=== PATIENT | female | born 1990 | race Caucasian/White ===

== ENCOUNTER 2018-06-30 07:53 | Emergency (ER) | payer BC, SELFPAY ==
[2018-06-30 07:55] VITALS: BP 131/93; PULSE 69; RESP 14; TEMP 36.5; O2SAT 100; BMI 34.3
--- NOTE | 2018-06-30 08:07 | CT_ITS ---
STUDY: CT ABDOMEN AND PELVIS WITHOUT CONTRAST REASON FOR EXAM: Female, 27 years old. Right flank pain. RADIATION DOSAGE (If Supplied By Facility): CTDIvol = ( 12.02 ) mGy, DLP = ( 603.62 ) mGycm TECHNIQUE: Transaxial images were obtained from the dome of the diaphragm to the symphysis pubis without oral contrast, and without intravenous contrast. Sagittal and coronal images were reconstructed. Individualized dose optimization techniques were used for this CT. COMPARISON: None. FINDINGS: The visualized lung bases are unremarkable. The visualized portions of the heart are within normal limits. Normal liver. Normal gallbladder and extrahepatic biliary system. Normal spleen. Normal pancreas. Normal bilateral adrenal glands. Mild degree of right hydronephrosis and the right hydroureter due to a 5 mm x 3 mm calculus at the right ureterovesical junction. There is a 3.8 mm calculus in the lower pole of the left kidney. There is also a 3.2 mm calculus in the upper pole of the left kidney. There is a small hiatal hernia. Normal small intestine. Normal colon. The appendix is visualized and appears normal. Normal abdominal aorta. Normal inferior vena cava. There is borderline retroperitoneal lymphadenopathy with enlarged nodes no greater than 10mm in the short axis diameter. Normal urinary bladder. There is a small umbilical hernia containing fat. Small bilateral benign-appearing inguinal lymph nodes. Normal osseous structures. Minimal levoscoliosis. CT/Abdomen/Pelvis without Cont IMPRESSION: 5 mm x 3 mm calculus at the right ureterovesical junction causing right hydronephrosis and hydroureter. Nonobstructive left intrarenal calculi. Electronically Signed: Herbert Musa MD at 9:37 EST Tel [phone], Service support ,
[2018-06-30] MEDS: Morphine 4 MG/ML Syringe IV (08:27)
[2018-06-30] MEDS: 0.9% Normal Saline 1,000 ML 150 ML IV (08:27)
[2018-06-30] MEDS: Ondansetron 4 MG/2 ML Vial IV (08:27)
[2018-06-30] MEDS: Ketorolac 15 MG/ML Vial IV (08:27)
[2018-06-30 08:45] LABS: Mucous, Urine 0 SEEN /hpf (<or=2+)
[2018-06-30 08:47] LABS: Absolute Lymphocyte Count 1.14 X10^3/ul (0.83-4.51); Absolute Neutrophil Count 5.1 X10^3/uL (2.0-7.7); Basophil# 0.04 X10^3/uL; Basophil% 0.6 % (0-1); Eosinophil# 0.27 X10^3/uL; Eosinophils% 3.7 % (0-5); Hematocrit 40.9 % (37-47); Hemoglobin 13.1 g/dl (12.0-15.0); Lymphocyte # 1.14 X10^3/ul (4.0); Lymphocyte % 15.7 % (19-41); Mean Corpuscular Hgb 30.1 pg (27.0-32.0); Mean Platelet Vol. 10.4 fl (6.2-12.0); Monocyte# 0.72 X10^3/uL; Monocyte% 9.9 % (0-10); Neutrophil # 5.07 X10^3/uL (2.7-7.7); Platelet Count 288 K/mm3 (150-450); RBC Distribution Width CV 13.3 % (11.6-14.6); RBC Distribution Width SD 44.1 fl (35.1-43.9); Red Blood Count 4.35 M/mm3 (4.2-5.4); White Blood Count 7.3 K/mm3 (4.4-11.0)
[2018-06-30 08:48] LABS: POSITIVE COUNT NO; POSITIVE DIFFERENTIAL NO; POSITIVE MORPHOLOGY NO
[2018-06-30 08:49] LABS: Color, Urine Yellow (Yellow); Glucose, Dipstick Normal (Normal); Ketone-Dipstick Negative (Negative); Leukocyte Esterase-Dipstick 100 /ul (Negative); Nitrite-Dipstick Negative (Negative); Occult Blood-Urine 50 /ul (Negative); Protein-Dipstick Negative (Negative); Specific Gravity, Urine 1.005 (1.002-1.030); Urine Bilirubin Dipstick Negative (Negative); Urine Clarity Sl. Cloudy (Clear); Urine Urobilinogen Normal (Normal); Urine pH 6.5 (5.0 - 8.0)
[2018-06-30 09:00] LABS: Anion Gap 8 (5-15); BUN 10 mg/dL (7-18); BUN/Creat Ratio 12.4 RATIO (10-20); Bacteria 1+ /hpf (None Seen); Calcium,Total 8.6 mg/dL (8.5-10.1); Chloride 110 mmol/L (98-107); Creatinine, Serum 0.81 mg/dL (0.55-1.02); EST Glomerular Filtration Rate 89 mL/min (>60); Est Glom Filt Rate - Afr Amer 107 mL/min (>60); Estimated Creatinine Clearance 92.21 ml/min; Glucose 88 mg/dL (74-106); Potassium 4.2 mmol/L (3.5-5.1); Red Blood Cells-Urine 0-5 SEEN /hpf (0-5); Sodium Level 140 mmol/L (136-145); Squamous Epithelial Cells - UA 0-5 SEEN /hpf (5-10); White Blood Cells 10-25 SEEN /hpf (0-5)
[2018-06-30] MEDS: Ceftriaxone 1 GM/50 ML BAG IV (09:35)
[2018-06-30 09:50] LABS: Pregnancy, Serum, hCG Quali. NEGATIVE Negative (0-9 Nonpreg)
--- NOTE | 2018-06-30 09:50 | ED.VISSUMM ---
- ER Visit Summary Date of Service: 06/30/18 Chief Complaint: [Right-sided flank pain] History of Present Illness: The patient is a 27 F [presents to the emergency department complaint of pain in her right flank that started 2-1/2 days ago. Patient was seen at urgent care and had a urinalysis performed which was concerning for infection and there was blood in it so they thought she could potentially have a kidney stone as well. Patient was started on Macrobid. Patient did have some dysuria initially but that seems to have improved with the antibiotic. Patient continues to have pain in her right lower back. She denies any fevers. She has had some nausea but no vomiting. Patient's not had any history of kidney stones. Patient is on Depo-Provera and does not believe she is . Patient currently rates her pain an 8 out of 10.] Physical Examination: [HEENT-PERRLA, EOMI. Cranial nerves II through XII grossly intact. TMs clear. Mucous membranes moist. No adenopathy. Cardiovascular-regular rate and rhythm without murmur or ectopy Lungs-clear to auscultation, chest wall stable without crepitus or subcu emphysema Abdomen-normoactive bowel sounds, soft, nontender, no rebound or rigidity, no peritoneal signs. Patient does have CVA tenderness on the right. Extremities-intact ?4, normal range of motion, normal pulses, atraumatic] Test Results: [CBC with differential obtained was normal. Chemistries unremarkable. Urinalysis was positive for 100 leukocyte esterase, 10-25 WBCs, and +[address] flank obtained showed a 5 x 3 mm stone at the right UVJ with hydroureter and hydronephrosis.] Emergency Department Course and Treatment: [Patient was medicated with Toradol, morphine, and Zofran and she had good pain relief with that. Patient is very comfortable at this time. I did discuss case with who is on-call for urology who asked the patient follow-up with his office.] Treatment Plan: [Patient will be given urine strainers as well as a prescription for [place] for pain. Patient advised to follow-up with urology. Patient to return if worsening pain, fever, vomiting, or condition should worsen anyway.] Disposition: [Discharged home in stable condition] Impression: [Urolithiasis UTI] This note was generated with Jim dictation software. It may contain incorrect words, spelling, and punctuation that were not noted in review of the chart prior to signing ED Disposition - Plan for ED Patient: Chief Complaint: Flank Pain Referrals: George Hamlin MD [Primary Care Provider] -
--- NOTE | 2018-06-30 09:52 | ED.DEP ---
ED Disposition - Plan for ED Patient: Chief Complaint: Flank Pain Instructions: ED Stone Renal W Colic, ED Kidney Infec Female Prescriptions: Hydrocodone Bitart/Apap 5-325 [[place] 5MG-325MG] 1 tab PO Q4H PRN PRN 2 Days #14 tab PRN Reason: Pain Referrals: George Hamlin MD [Primary Care Provider] - Ariel Rdz MD [STAFF PHYSICIAN] - 3-5 Days
[2018-06-30 10:11] VITALS: BP 126/73; PULSE 78; RESP 16; O2SAT 97
--- OUTSIDE RECORDS SUMMARY | 2018-09-03 15:33 | XMS RPT_ITS ---
:1990 Author Organization [facility] Care Team Providers Name Role Phone JEB SEGAL (SYSTEM ADMIN) Attending Unavailable Mukund Dickinson Attending Unavailable George Hamlin Primary Care Unavailable PROBLEMS PROBLEMS DATE TYPE CONDITION / CODE ATTENDING STATUS SOURCE 06/30/2018 Unknown N20.0 - Calculus Mukund Dickinson Active [facility] N20.0(ICD-10) Hospital Repository 06/29/2018 Active Unknown / JEB SEGAL Active [facility] UNK(Unknown) (SYSTEM ADMIN) Main [place] Repository PROCEDURES PROCEDURES No Procedure Records FoundRESULTS RESULTS DISCHARGE INSTRUCTION Observed: 06/30/2018 Status: F Source: RELL 9:54 AM [facility] REPOSITORY [facility] Medical Records Department [address] [facility] [address] Discharge Instruction 06/30/18 0952 MR#: [id number] Acct: [id number] Name: ANNEL MARTIN Rep #: [id number] : 1990 27 From: Mukund Dickinson DO PCP: George Hamlin MD Status: REG ER ED Disposition - Plan for ED Patient: Chief Complaint: Flank Pain Instructions: ED Stone Renal W Colic, ED Kidney Infec Female Prescriptions: Hydrocodone Bitart/Apap 5-325 [Bringhurst 5MG-325MG] 1 tab PO Q4H PRN PRN 2 Days #14 tab PRN Reason: Pain Referrals: George Hamlin MD [Primary Care Provider] - Ariel Rdz MD [STAFF PHYSICIAN] - 3-5 Days What to do if you have Problems For any increased pain, shortness of breath, bleeding, nausea or vomiting, chest pain, or any unexpected problems, contact your Primary Care Provider. Call [facility] ([phone]) or report to the closest Emergency Room. Call 911 if necessary. 06/30/18 0954 <Electronically signed by Mukund Dickinson DO> Date Mukund Dickinson DO Cosigner Signature (If Indicated): Date CC: George Hamlin MD EMERGENCY DEPARTMENT Observed: 06/30/2018 Status: F Source: PRIMROSE SUMMARY 9:52 AM [facility] REPOSITORY [facility] Medical Records Department [address] [place] [address] Emergency Department Summary 06/30/18 0950 MR#: [id number] Acct: [id number] Name: ANNEL MARTIN Rep #: [id number] : 1990 27 From: Mukund Dickinson DO PCP: George Hamlin MD Status: REG ER - ER Visit Summary Date of Service: 06/30/18 Chief Complaint: [Right-sided flank pain] History of Present Illness: The patient is a 27 F [presents to the emergency department complaint of pain in her right flank that started 2-1/2 days ago. Patient was seen at urgent care and had a urinalysis performed which was concerning for infection and there was blood in it so they thought she could potentially have a kidney stone as well. Patient was started on Macrobid. Patient did have some dysuria initially but that seems to have improved with the antibiotic. Patient continues to have pain in her right lower back. She denies any fevers. She has had some nausea but no vomiting. Patient's not had any history of kidney stones. Patient is on Depo-Provera and does not believe she is . Patient currently rates her pain an 8 out of 10.] Physical Examination: [HEENT-PERRLA, EOMI. Cranial nerves II through XII grossly intact. TMs clear. Mucous membranes moist. No adenopathy. Cardiovascular-regular rate and rhythm without murmur or ectopy Lungs-clear to auscultation, chest wall stable without crepitus or subcu emphysema Abdomen-normoactive bowel sounds, soft, nontender, no rebound or rigidity, no peritoneal signs. Patient does have CVA tenderness on the right. Extremities-intact 4, normal range of motion, normal pulses, atraumatic] Test Results: [CBC with differential obtained was normal. Chemistries unremarkable. Urinalysis was positive for 100 leukocyte esterase, 10-25 WBCs, and +[address] flank obtained showed a 5 x 3 mm stone at the right UVJ with hydroureter and hydronephrosis.] Emergency Department Course and Treatment: [Patient was medicated with Toradol, morphine, and Zofran and she had good pain relief with that. Patient is very comfortable at this time. I did discuss case with who is on-call for urology who asked the patient follow-up with his office.] Treatment Plan: [Patient will be given urine strainers as well as a prescription for Bringhurst for pain. Patient advised to follow-up with urology. Patient to return if worsening pain, fever, vomiting, or condition should worsen anyway.] Disposition: [Discharged home in stable condition] Impression: [Urolithiasis UTI] This note was generated with Pixelligent dictation software. It may contain incorrect words, spelling, and punctuation that were not noted in review of the chart prior to signing ED Disposition - Plan for ED Patient: Chief Complaint: Flank Pain Referrals: George Hamlin MD [Primary Care Provider] - What to do if you have Problems For any increased pain, shortness of breath, bleeding, nausea or vomiting, chest pain, or any unexpected problems, contact your Primary Care Provider. Call [facility] ([phone]) or report to the closest Emergency Room. Call 911 if necessary. 06/30/18 0952 <Electronically signed by Mukund Dickinson DO> Date Mukund Dickinson DO Cosigner Signature (If Indicated): Date CC: George Hamlin MD CBC W/DIFF, AUTOMATED Collected: 06/30/2018 Status: F Source: RELL 8:31 AM [facility] REPOSITORY TYPE CODE TESTS RESULT OUT OF RANGE REFERENCE UNITS LAB L100.1000 4.4-11.0 K/mm3 Normal WBC 7.3 LAB L100.1200 4.2-5.4 M/mm3 Normal RBC 4.35 LAB L100.1300 12.0-15.0 g/dl Normal HGB 13.1 LAB L100.1400 37-47 % Normal HCT 40.9 LAB L100.1500 81-99 fL Normal MCV 94.0 LAB L100.1600 27.0-32.0 pg Normal MCH 30.1 LAB L100.1700 32-36 g/gl Normal MCHC 32.0 LAB L100.1810 11.6-14.6 % Normal RDW CV 13.3 LAB L100.1820 35.1-43.9 fl High RDW SD 44.1 LAB L100.1900 150-450 K/mm3 Normal PLT 288 LAB L100.2000 6.2-12.0 fl Normal MPV 10.4 LAB L100.2100 47-70 % Normal NEUT% 70.0 LAB L100.2200 19-41 % Low LY% 15.7 LAB L100.2300 0-10 % Normal MONO% 9.9 LAB L100.2400 0-5 % Normal EO% 3.7 LAB L100.2500 0-1 % Normal BASO% 0.6 LAB L100.2550 0.0-0.9 % Normal IM GRAN % 0.100 Result Comment: IG% - Immature Granulocytes (promyelocytes, myelocytes and metamyelocytes) > 1% indicates that a LEFT SHIFT is Present. LAB L100.2620 2.0-7.7 X10 3/uL Normal Absolute Neut 5.1 LAB L100.2720 0.83-4.51 X10 3/ul Normal Absolute Lymph 1.14 Performed By: #### L100.0100 #### [facility] [address] [place], [address] URINALYSIS, COMPLETE Collected: 06/30/2018 Status: F Source: RELL 8:31 AM [facility] REPOSITORY Order Comment: How was Urine Obtained? CLEAN CATCH TYPE CODE TESTS RESULT OUT OF RANGE REFERENCE UNITS LAB L400.3000 Yellow COLOR Normal Yellow LAB L400.3050 Clear Normal CLARITY Sl. Cloudy LAB L400.3200 Normal mg/dl Normal GLUCOSE, UR Normal LAB L400.3300 Negative mg/dL Normal BILIRUBIN URINE Negative LAB L400.3400 Negative mg/dl Normal KETONE UR Negative LAB L400.3465 1.002-1.030 Normal SP.GR. DIPSTX 1.005 LAB L400.3550 5.0 - 8.0 pH UR Normal 6.5 LAB L400.3600 Negative mg/dl PROT Normal DIPSTX Negative LAB L400.3700 Normal mg/dl Normal UROBILI Normal LAB L400.3750 Negative Normal NITRITE UR Negative LAB L400.3780 Negative /ul High 50 OCCULT BLOOD-UR LAB L400.3800 Negative /ul High LEUK ESTERASE 100 LAB L400.4050 0-5 /hpf WBC Normal 10-25 SEEN LAB L400.4100 0-5 /hpf Normal RBC-UA 0-5 SEEN LAB L400.4150 5-10 /hpf SQUAM Normal EPI 0-5 SEEN LAB L400.4300 None Seen /hpf 1+ Normal BACTERIA LAB L400.4350 <or=2+ /hpf 0 Normal MUCUS, URINE SEEN Performed By: #### L400.0001 #### [facility] [address] [place], [address] BASIC METABOLIC Collected: 06/30/2018 Status: F Source: RELL PROFILE (BMP) 8:31 AM [facility] REPOSITORY TYPE CODE TESTS RESULT OUT OF RANGE REFERENCE UNITS LAB L501.0100 74-106 mg/dL Normal GLU 88 Result Comment: Please note revised GLUCOSE reference range effective 2017. LAB L501.1000 7-18 mg/dL Normal BUN 10 LAB L501.1100 0.55-1.02 mg/dL Normal CREAT,SERUM 0.81 Result Comment: The validity of the calculated GFR AND GFRAA in patients over 70 years has not been determined. Clinical correlation is essential. LAB L501.1110 >60 mL/min Normal EST GFR 89 Result Comment: Non- GFR Calc LAB L501.1115 >60 mL/min Normal EST GFR - AA 107 Result Comment: GFR Calc LAB L501.1255 ml/min Normal Estimated CRCL 92.21 LAB L501.1300 10-20 RATIO Normal BUN/CRE 12.4 LAB L501.2200 8.5-10 mg/dL Normal .1 CA 8.6 LAB L501.5300 136-14 mmol/L Normal 5 NA 140 LAB L501.5600 3.5-5. mmol/L Normal 1 K 4.2 LAB L501.5900 98-107 mmol/L High CL 110 LAB L501.6100 21.0-3 mmol/L Normal 2.0 CO2 22.0 LAB L501.6200 5-15 Normal GAP 8 Performed By: #### L500.2500 #### [facility] [place], [address] ,SERUM,HCG QUALI. Collected: Status: F Source: RELL 06/30/2018 8:31 AM [facility] REPOSITORY TYPE CODE TESTS RESULT OUT OF REFERENCE UNITS RANGE LAB L700.7000 0-9 Nonpreg Negative Normal HCGSQUAL NEGATIVE LAB L700.6700 =>Qualitative mIU/mL Normal HCG Qual < 1 triggr Performed By: #### L700.6800 #### [facility] [place], [address] Observed: 06/30/2018 Status: F Source: RELL CULTURE, URINE 8:20 AM [facility] REPOSITORY Urine Culture Below infection level. ORGANISM 1: Mixed Gram Positive Organisms Hart Count 1000-10,000 Performed By: #### M100.0650 #### [facility] [address] [place], [address] ABDOMEN/PELVIS WITHOUT Observed: 06/30/2018 Status: F Source: RELL CONT 8:08 AM [facility] REPOSITORY [facility] Imaging Services [address] [place] [address] Abdomen/Pelvis without Cont MR#: [id number] Acct: [id number] Name: ANNEL MARTIN Rep #: [id number] : 1990 F 27 From: Herbert Musa MD PCP: Boubacar MARTINI,George Status: REG ER Study: Abdomen/Pelvis without Cont Date of Exam: 06/30/18 Exam# [id number] Ordering Dr: Mukund Dickinson DO STUDY: CT ABDOMEN AND PELVIS WITHOUT CONTRAST REASON FOR EXAM: Female, 27 years old. Right flank pain. RADIATION DOSAGE (If Supplied By Facility): CTDIvol = ( 12.02 ) mGy, DLP = ( 603.62 ) mGycm TECHNIQUE: Transaxial images were obtained from the dome of the diaphragm to the symphysis pubis without oral contrast, and without intravenous contrast. Sagittal and coronal images were reconstructed. Individualized dose optimization techniques were used for this CT. COMPARISON: None. FINDINGS: The visualized lung bases are unremarkable. The visualized portions of the heart are within normal limits. Normal liver. Normal gallbladder and extrahepatic biliary system. Normal spleen. Normal pancreas. Normal bilateral adrenal glands. Mild degree of right hydronephrosis and the right hydroureter due to a 5 mm x 3 mm calculus at the right ureterovesical junction. There is a 3.8 mm calculus in the lower pole of the left kidney. There is also a 3.2 mm calculus in the upper pole of the left kidney. There is a small hiatal hernia. Normal small intestine. Normal colon. The appendix is visualized and appears normal. Normal abdominal aorta. Normal inferior vena cava. There is borderline retroperitoneal lymphadenopathy with enlarged nodes no greater than 10mm in the short axis diameter. Normal urinary bladder. There is a small umbilical hernia containing fat. Small bilateral benign-appearing inguinal lymph nodes. Normal osseous structures. Minimal levoscoliosis. CT/Abdomen/Pelvis without Cont IMPRESSION: 5 mm x 3 mm calculus at the right ureterovesical junction causing right hydronephrosis and hydroureter. Nonobstructive left intrarenal calculi. Electronically Signed: Herbert Musa MD at 9:37 EST Tel [phone], Service support , CC: George Hamlin MD; Mukund Dickinson DO Pipe Cutter: Signed PROGRESS Observed: 06/29/2018 Status: COMPLETED Source: TRILLA 9:33 AM [facility] REPOSITORY HNO ID: [id number] Author: Jeb Jorgensen) Ivette Service: (none) Author Type: Nurse Practitioner Type: Progress Notes Filed: 06/29/2018 10:32 AM Note Text: 06/29/2018 Patient presents with: UTI SUBJECTIVE: This is a 27 year old that is here today for right sided flank pain, low suprapubic abdominal pressure, urgency with urination, and dysuria. She was seen in the yesterday. Culture is pending. She was given treatment for + UA with blood and leuks with macrbid. She states that she is worried about kidney stones because she is not feeling any better and the pain is bothering her through the night. She is not taking anything OTC for the pain. She is not seeing any blood in her urine. She has never had a kidney stone before. She denies fever or chills. She states that she does not drink much water, she drinks a lot of monster energy drinks. No past medical history on file. ALLERGIES Patient has no known allergies. MEDICATIONS Current Outpatient Prescriptions: nitrofurantoin monohydrate and macrocrystal (MACROBID) 100 mg capsule Take 1 capsule by mouth twice daily with meals for 7 days. Aidgtmrjjpsuhqr-Wjybtevrq-UR (BROMFED DM) 2-30-10 mg/5 mL syrup Take 10 mL by mouth four times daily as needed. (Patient not taking: Reported on 06/28/2018 ) No current facility-administered medications for this visit. Medications and allergies reviewed by this provider. SOCIAL HISTORY Social History Marital status: Spouse name: Years of education: Number of children: Social History Main Topics Smoking status: Former Smoker Packs/day: 0.00 Years: 0.00 Smokeless tobacco: Never Used REVIEW OF SYSTEMS see HPI OBJECTIVE: BP 122/78 Pulse 94 Resp 16 Wt 93 kg (205 lb) SpO2 97% . Vital signs reviewed by this provider. PHYSICAL EXAMINATION: General appearance: Well appearing, alert, in no acute distress, well-hydrated, well nourished. Skin: Skin color, texture, turgor normal, no suspicious rashes or lesions Lungs: lungs clear to auscultation. No wheezing, rhonchi, rales Heart: RRR without murmur, gallop, or rubs. No ectopy Abdomen: Abdomen soft. Bowel sounds normal. No masses, organomegaly, Positive findings: tenderness mild suprapubic + Right sided CVA tenderness Extremities: No deformities, edema, skin discoloration, clubbing or cyanosis. Good capillary refill. , Pulses: 2+ ASSESSMENT/PLAN: 1. Microscopic hematuria - ICD9: 599.72, ICD10: R31.29 (primary diagnosis) - will await culture results, continue Macrobid - Add flomax and Naproxen with increased water intake for possible kidney stone - follow up with any worsening pain, may need imaging and/or urology referral 2. UTI symptoms - ICD9: 788.99, ICD10: R39.9 - UA DIP, URINE (POC) MALINI CruzOV Observed: 06/29/2018 Status: COMPLETED Source: TRILLA 9:00 AM [facility] REPOSITORY Office Visit (FAMPWS) ANNEL MARTIN ([id number]) 1990 F Date Time Provider Department 06/29/18 9:00 AM JEB SEGAL (GRACIELA) FAMPWS During your visit today, we recorded the following information about you: Pulse Respiration Blood pressure Weight 94/minute 16/minute 122/78 93 kg Jeb Segal APRN.CNP 06/29/2018 10:32 AM Signed 06/29/2018 Patient presents with: UTI SUBJECTIVE: This is a 27 year old that is here today for right sided flank pain, low suprapubic abdominal pressure, urgency with urination, and dysuria. She was seen in the yesterday. Culture is pending. She was given treatment for + UA with blood and leuks with macrbid. She states that she is worried about kidney stones because she is not feeling any better and the pain is bothering her through the night. She is not taking anything OTC for the pain. She is not seeing any blood in her urine. She has never had a kidney stone before. She denies fever or chills. She states that she does not drink much water, she drinks a lot of monster energy drinks. No past medical history on file. ALLERGIES Patient has no known allergies. MEDICATIONS Current Outpatient Prescriptions: nitrofurantoin monohydrate and macrocrystal (MACROBID) 100 mg capsule Take 1 capsule by mouth twice daily with meals for 7 days. Gcuyqpemuifapjs-Naekqmkvs-PM (BROMFED DM) 2-30-10 mg/5 mL syrup Take 10 mL by mouth four times daily as needed. (Patient not taking: Reported on 06/28/2018 ) No current facility-administered medications for this visit. Medications and allergies reviewed by this provider. SOCIAL HISTORY Social History Marital status: Spouse name: Years of education: Number of children: Social History Main Topics Smoking status: Former Smoker Packs/day: 0.00 Years: 0.00 Smokeless tobacco: Never Used REVIEW OF SYSTEMS see HPI OBJECTIVE: BP 122/78 Pulse 94 Resp 16 Wt 93 kg (205 lb) SpO2 97% . Vital signs reviewed by this provider. PHYSICAL EXAMINATION: General appearance: Well appearing, alert, in no acute distress, well-hydrated, well nourished. Skin: Skin color, texture, turgor normal, no suspicious rashes or lesions Lungs: lungs clear to auscultation. No wheezing, rhonchi, rales Heart: RRR without murmur, gallop, or rubs. No ectopy Abdomen: Abdomen soft. Bowel sounds normal. No masses, organomegaly, Positive findings: tenderness mild suprapubic + Right sided CVA tenderness Extremities: No deformities, edema, skin discoloration, clubbing or cyanosis. Good capillary refill. , Pulses: 2+ ASSESSMENT/PLAN: 1. Microscopic hematuria - ICD9: 599.72, ICD10: R31.29 (primary diagnosis) - will await culture results, continue Macrobid - Add flomax and Naproxen with increased water intake for possible kidney stone - follow up with any worsening pain, may need imaging and/or urology referral 2. UTI symptoms - ICD9: 788.99, ICD10: R39.9 - UA DIP, URINE (POC) Jeb Segal APRN.SYSTEM ADMIN Referring Provider: SELF [200] Allergies As of Date: 06/29/2018 (No Known Allergies) Date Reviewed: 06/29/2018 Reviewed by: Shannon (Juanpablo) JUANPABLO Trevizo - Fully Assessed Reason for Visit: UTI [116] Primary Visit Diagnosis:Microscopic hematuria [R31.29] Other Visit Diagnosis:UTI symptoms [R39.9] Order(s):UA DIP, URINE (POC) [[id number]] Order #: [id number]. #:[id number] tamsulosin ER (FLOMAX) 0.4 mg capTake 1 capsule by mouth daily at bedtime.Disp: 10 capsuleRfl: 0 naproxen (NAPROSYN) 500 mg tabletTake 1 tablet by mouth twice daily as needed (for pain/inflammation). Take with food.Disp: 60 tabletRfl: 0 Prescriptions as of 06/29/2018 Sig: NITROFURANTOIN MONOHYDRATE AND * Take 1 capsule by mouth twice* TAMSULOSIN 0.4 MG CAPSULE Take 1 capsule by mouth daily* NAPROXEN 500 MG TABLET Take 1 tablet by mouth twice * BROMPHENIRAMINE-PSEUDOEPHEDRI* Take 10 mL by mouth four time* Patient not taking: Reported on 06/28/2018 Problem List As Of Date: 06/29/2018 (None) Prescriptions ordered this encounter Disp Refills Start End TAMSULOSIN 0.4 MG CAPSULE 10 c* 0 06/29/2018 Route: ORAL Sig: Take 1 capsule by mouth daily at bedtime. NAPROXEN 500 MG TABLET 60 t* 0 06/29/2018 Route: ORAL Sig: Take 1 tablet by mouth twice daily as needed (for pain/inflammation). Take with food. Encounter Status:Closed by JEB SEGAL on 06/29/18 Observed: 06/28/2018 Status: F Source: TRILLA URINE CULTURE 3:30 PM [facility] REPOSITORY Sp. Request/Comment: - Specimen received in preservative Culture Result - 50,000 - <100,000 CFU/ml Escherichia coli --> ABNORMAL ALERT ORGANISM: Escherichia coli METHOD: Minimum inhibitory concentration(Vitek) Antibiotic Interp ALEXEY Status Ampicillin SUSCEPTIBLE 4 F Gentamicin SUSCEPTIBLE <=1 F Trimeth sulfameth SUSCEPTIBLE <=20 F Cefazolin SUSCEPTIBLE <=4 F CLSI breakpoints for therapy of uncomplicated UTI's due to E.coli, K.pneumoniae, and P.mirabilis were applied and may be used to predict the activity of oral agents(cefaclor, cefdinir, cefpodoxime, cefp rozil, cefuroxime, cephalexin, loracarbef). Ciprofloxacin SUSCEPTIBLE <=0.25 F Nitrofurantoin SUSCEPTIBLE <=16 F Cefepime SUSCEPTIBLE <=1 F Piperacillin/Tazobac SUSCEPTIBLE <=4 F Ampicillin Sulbact SUSCEPTIBLE <=2 F Ceftriaxone SUSCEPTIBLE <=1 F Meropenem SUSCEPTIBLE <=0.25 F Ertapenem SUSCEPTIBLE <=0.5 F Performed By: #### URCUL #### [facility] [address] [place], [place] [address] PROGRESS Observed: 06/28/2018 Status: COMPLETED Source: TRILLA 2:59 PM [facility] REPOSITORY HNO ID: [id number] Author: Jose E Jorgensen) Service: (none) Author Type: Nurse Practitioner Type: Progress Notes Filed: 06/28/2018 3:21 PM Note Text: Subjective HPI HPI Annel Martin is a 27 year old female who presents today for CC of urinary frequency, urgency, back discomfort. This started 1 day ago. Has tried nothing for relief. Symptoms are worsened by nothing. Risk factors remote hx of uti. Denies possibility of being . No concerns for STD's. No hx of kidney stones. .Patient presents with: Dysuria: lower back pain x 1 day No past medical history on file. No past surgical history on file. ALLERGIES Patient has no known allergies. MEDICATIONS Pzedavpivgqsjtq-Itnvsazip-CN (BROMFED DM) 2-30-10 mg/5 mL syrup Take 10 mL by mouth four times daily as needed. No family history on file. Social History Substance Use Topics - Smoking status: Former Smoker - Smokeless tobacco: Never Used - Alcohol use Not on file Review of Systems Constitutional: Negative for fever. Respiratory: Negative for cough, shortness of breath and wheezing. Cardiovascular: Negative for chest pain and palpitations. Gastrointestinal: Negative for abdominal pain, blood in stool, constipation, diarrhea, heartburn, melena, nausea and vomiting. Genitourinary: Positive for dysuria, frequency and urgency. Negative for flank pain and hematuria. Objective Blood pressure 132/84, pulse 82, temperature 36.2 ?C (97.1 ?F), temperature source Tympanic, resp. rate 16, weight 93 kg (205 lb). Physical Exam Constitutional: She is well-developed, well-nourished, and in no distress. Non-toxic appearance. She does not have a sickly appearance. No distress. Cardiovascular: Normal rate, regular rhythm and normal heart sounds. Pulmonary/Chest: Effort normal and breath sounds normal. Abdominal: Soft. Normal appearance and bowel sounds are normal. There is no hepatosplenomegaly. There is tenderness (mild with palpation) in the suprapubic area. There is no CVA tenderness. Skin: Skin is warm and dry. ASSESSMENT/PLAN: 1. Dysuria - ICD9: 788.1, ICD10: R30.0 acute - UA positive for sheela esterase and hematuria - Send urine for culture - Begin treatment with Macrobid 100 mg BID for 7 days - Patient education for prevention given - UA DIP, URINE (POC) - NITROFURANTOIN MONOHYDRATE AND MACROCRYSTAL 100 MG ORAL CAP - URINE CULTURE Prescription instructions reviewed with patient as applicable. Patient advised if symptoms do not improve or if symptoms worsen sooner, to contact the office for further evaluation by their primary care physician. Potential red flag symptoms discussed with the patient. Reviewed appropriate action plan to take if red flag symptoms occur. Patient agreeable to treatment plan. Jose E Bal APRN.GRACIELA CNOV Observed: 06/28/2018 Status: COMPLETED Source: TRILLA 2:45 PM [facility] REPOSITORY Office Visit (WSTR) ANNEL MARTIN ([id number]) 1990 F Date Time Provider Department 06/28/18 2:45 PM JOSE E BAL (GRACIELA) [facility] During your visit today, we recorded the following information about you: Temperature Pulse Respiration Blood pressure 97.1 degrees 82/minute 16/minute 132/84 Weight 93 kg Jose E MALINI Bal 06/28/2018 3:21 PM Signed Subjective HPI HPI Annel Martin is a 27 year old female who presents today for CC of urinary frequency, urgency, back discomfort. This started 1 day ago. Has tried nothing for relief. Symptoms are worsened by nothing. Risk factors remote hx of uti. Denies possibility of being . No concerns for STD's. No hx of kidney stones. .Patient presents with: Dysuria: lower back pain x 1 day No past medical history on file. No past surgical history on file. ALLERGIES Patient has no known allergies. MEDICATIONS Ovaxzwwdrujhopt-Kwveqvzty-DU (BROMFED DM) 2-30-10 mg/5 mL syrup Take 10 mL by mouth four times daily as needed. No family history on file. Social History Substance Use Topics - Smoking status: Former Smoker - Smokeless tobacco: Never Used - Alcohol use Not on file Review of Systems Constitutional: Negative for fever. Respiratory: Negative for cough, shortness of breath and wheezing. Cardiovascular: Negative for chest pain and palpitations. Gastrointestinal: Negative for abdominal pain, blood in stool, constipation, diarrhea, heartburn, melena, nausea and vomiting. Genitourinary: Positive for dysuria, frequency and urgency. Negative for flank pain and hematuria. Objective Blood pressure 132/84, pulse 82, temperature 36.2 ?C (97.1 ?F), temperature source Tympanic, resp. rate 16, weight 93 kg (205 lb). Physical Exam Constitutional: She is well-developed, well-nourished, and in no distress. Non-toxic appearance. She does not have a sickly appearance. No distress. Cardiovascular: Normal rate, regular rhythm and normal heart sounds. Pulmonary/Chest: Effort normal and breath sounds normal. Abdominal: Soft. Normal appearance and bowel sounds are normal. There is no hepatosplenomegaly. There is tenderness (mild with palpation) in the suprapubic area. There is no CVA tenderness. Skin: Skin is warm and dry. ASSESSMENT/PLAN: 1. Dysuria - ICD9: 788.1, ICD10: R30.0 acute - UA positive for sheela esterase and hematuria - Send urine for culture - Begin treatment with Macrobid 100 mg BID for 7 days - Patient education for prevention given - UA DIP, URINE (POC) - NITROFURANTOIN MONOHYDRATE AND MACROCRYSTAL 100 MG ORAL CAP - URINE CULTURE Prescription instructions reviewed with patient as applicable. Patient advised if symptoms do not improve or if symptoms worsen sooner, to contact the office for further evaluation by their primary care physician. Potential red flag symptoms discussed with the patient. Reviewed appropriate action plan to take if red flag symptoms occur. Patient agreeable to treatment plan. MALINI Torres APRN.CNP 06/28/2018 3:10 PM Signed URINARY TRACT INFECTION GENERAL INFORMATION: A urinary tract infection (UTI) is an infection of the bladder or kidneys. A bladder infection, called cystitis, is the more common type. If the infection travels up to the kidneys, it is called pyelonephritis. This can be more serious. UTIs are a common problem in women. Having sexual relations can leave a woman more susceptible to developing a UTI, but it is not sexually transmitted like gonorrhea. Some women have a problem with recurrent UTIs. INSTRUCTIONS: 1. Your doctor prescribed an antibiotic to treat the UTI. Take exactly as directed. Be sure to take all the medication prescribed, even if your symptoms disappear. If you stop treatment early, the infection may not be fully treated and the symptoms could come back again. 2. Get plenty of rest. You may take acetaminophen for fever and aches. 3. Drink 6 to 8 glasses of fluids, especially water, every day. This helps wash out germs from your urinary tract. Cranberry juice or other sources of vitamin C are also good for you. 4. Urinate often, as soon as you feel the urge. Empty your bladder completely. Urinate before and after you have sex. 5. Always wipe from front to back after going to the bathroom. This pushes germs away from your bladder, rather than towards it. 6. Showers are better than baths, and you should wash the genital area daily. Avoid bubble bath or bath oils if you do take a bath. 7. Wear underwear and pantyhose with a cotton crotch. CONTACT YOUR DOCTOR: 1. You have a temperature over 102F (38.8C) after 48 hours on medication. 2. You notice blood in your urine. 3. Your symptoms don't improve in 2 days. 4. You develop nausea, vomiting, diarrhea, or a rash. 5. You develop new or unexplained symptoms. These may be related to the medication you are taking. 6. Your symptoms return after you finish treatment. RETURN TO THE EMERGENCY DEPARTMENT IF: You develop vomiting and can't keep your medication or fluids down. Referring Provider: SELF [200] Allergies As of Date: 06/28/2018 (No Known Allergies) Date Reviewed: 06/28/2018 Reviewed by: Jose E (Graciela) - Fully Assessed Reason for Visit: Dysuria [1085] Cmt: lower back pain x 1 day Primary Visit Diagnosis:Dysuria [R30.0] Order(s):UA DIP, URINE (POC) [9304575] Order #: [id number]. #:[id number] nitrofurantoin monohydrate and macrocrystal (MACROBID) 100 mg capsuleTake 1 capsule by mouth twice daily with meals for 7 days.Disp: 14 capsuleRfl: 0 URINE CULTURE [SQURCUL] Order #: [id number] Prescriptions as of 06/28/2018 Sig: NITROFURANTOIN MONOHYDRATE AND * Take 1 capsule by mouth twice* BROMPHENIRAMINE-PSEUDOEPHEDRI* Take 10 mL by mouth four time* Patient not taking: Reported on 06/28/2018 Problem List As Of Date: 06/28/2018 (None) Other instructions from your clinician: URINARY TRACT INFECTION GENERAL INFORMATION: A urinary tract infection (UTI) is an infection of the bladder or kidneys. A bladder infection, called cystitis, is the more common type. If the infection travels up to the kidneys, it is called pyelonephritis. This can be more serious. UTIs are a common problem in women. Having sexual relations can leave a woman more susceptible to developing a UTI, but it is not sexually transmitted like gonorrhea. Some women have a problem with recurrent UTIs. INSTRUCTIONS: 1. Your doctor prescribed an antibiotic to treat the UTI. Take exactly as directed. Be sure to take all the medication prescribed, even if your symptoms disappear. If you stop treatment early, the infection may not be fully treated and the symptoms could come back again. 2. Get plenty of rest. You may take acetaminophen for fever and aches. 3. Drink 6 to 8 glasses of fluids, especially water, every day. This helps wash out germs from your urinary tract. Cranberry juice or other sources of vitamin C are also good for you. 4. Urinate often, as soon as you feel the urge. Empty your bladder completely. Urinate before and after you have sex. 5. Always wipe from front to back after going to the bathroom. This pushes germs away from your bladder, rather than towards it. 6. Showers are better than baths, and you should wash the genital area daily. Avoid bubble bath or bath oils if you do take a bath. 7. Wear underwear and pantyhose with a cotton crotch. CONTACT YOUR DOCTOR: 1. You have a temperature over 102F (38.8C) after 48 hours on medication. 2. You notice blood in your urine. 3. Your symptoms don't improve in 2 days. 4. You develop nausea, vomiting, diarrhea, or a rash. 5. You develop new or unexplained symptoms. These may be related to the medication you are taking. 6. Your symptoms return after you finish treatment. RETURN TO THE EMERGENCY DEPARTMENT IF: You develop vomiting and can't keep your medication or fluids down. Prescriptions ordered this encounter Disp Refills Start End NITROFURANTOIN MONOHYDRATE AND MACROCR* 14 c* 0 06/28/2018 07/05/2018 Route: ORAL Sig: Take 1 capsule by mouth twice daily with meals for 7 days. Encounter Status:Closed by JOSE E BAL CNP on 06/28/18 PROGRESS Observed: 05/23/2018 Status: COMPLETED Source: [place] 4:03 PM [facility] REPOSITORY HNO ID: [id number] Author: Preet Osborn) Leigh Service: (none) Author Type: Physician Ultra Sound Technician Type: Progress Notes Filed: 05/23/2018 5:13 PM Note Text: Subjective HPI Patient presents with a sore throat, ear pressure, cough over the past 4 days. No fever. No vomiting or diarrhea. Denies chest pain or shortness of breath. She is not a smoker. No history of asthma. She denies any sick contacts that she knows of. Review of Systems Constitutional: Negative. HENT: Positive for congestion, ear pain and sore throat. Negative for sinus pain. Eyes: Negative. Respiratory: Positive for cough. Negative for hemoptysis, sputum production, shortness of breath and wheezing. Cardiovascular: Negative. Negative for chest pain. Gastrointestinal: Negative. Genitourinary: Negative. Skin: Negative. All other systems reviewed and are negative. No past medical history on file. Current Outpatient Prescriptions: Fnizctqizkmfopp-Icfyvtyeu-IV (BROMFED DM) 2-30-10 mg/5 mL syrup Take 10 mL by mouth four times daily as needed. Disp: 200 mL Rfl: 0 No current facility-administered medications for this visit. No past surgical history on file. No family history on file. Social History Substance Use Topics - Smoking status: Former Smoker - Smokeless tobacco: Never Used - Alcohol use Not on file BP 126/74 Pulse 74 Temp 36.4 ?C (97.6 ?F) (Tympanic) Resp 16 Wt 92.5 kg (204 lb) SpO2 97% Objective Physical Exam Constitutional: She is oriented to person, place, and time and well-developed, well-nourished, and in no distress. HENT: Head: Normocephalic and atraumatic. Right Ear: Tympanic membrane, external ear and ear canal normal. Left Ear: Tympanic membrane, external ear and ear canal normal. Nose: Mucosal edema and rhinorrhea present. Mouth/Throat: Uvula is midline, oropharynx is clear and moist and mucous membranes are normal. Neck: Normal range of motion. Neck supple. Cardiovascular: Normal rate, regular rhythm and normal heart sounds. Pulmonary/Chest: Effort normal and breath sounds normal. Neurological: She is alert and oriented to person, place, and time. Skin: Skin is warm and dry. Psychiatric: Affect and judgment normal. Nursing note and vitals reviewed. ASSESSMENT/PLAN: 1. Viral URI with cough - ICD9: 465.9, ICD10: J06.9, B97.89 (primary diagnosis) - Discussed viral etiology and rationale for treatment. - Rapid strep negative in office today - Symptomatic treatment with prn analgesia - Supportive care with fluids and rest - Follow up in one week if symptoms persist or sooner if worsening of symptoms - Bromfed for symtpoms. 2. Sore throat - ICD9: 462, ICD10: J02.9 - GROUP A STREPTOCOCCUS BY PCR - RAPID STREP TEST B/O Preet Yu PA-C GROUP A STREP BY Collected: 05/23/2018 Status: F Source: [place] PCR 3:45 PM [facility] REPOSITORY TYPE CODE TESTS RESULT OUT OF REFERENCE UNITS RANGE LAB [facility] Throat Swab GAS Specimen Source LAB PCRGAS Negative for Group A Strep Group A PCR Streptococcus by PCR. Result Comment: This test was developed and its performance characteristics determined by [facility]'s Reji Piña [facility] [place] ([facility] It has not been cleared or approved by the FDA. [facility] is regulated under CLIA as qualified to perform high-complexity testing. This test is used for clinical purposes. It should not be regarded as inv estigational or for research. Performed By: #### GASPCR #### [facility] [address] [place], [place] [address] CNOV Observed: 05/23/2018 Status: COMPLETED Source: [place] 3:00 PM [facility] REPOSITORY Office Visit (WSTR) ANNEL MARTIN ([id number]) 1990 F Date Time Provider Department 05/23/18 3:00 PM PREET YU (JAYANT) WSTR During your visit today, we recorded the following information about you: Temperature Pulse Respiration Blood pressure 97.6 degrees 74/minute 16/minute 126/74 Weight 92.5 kg Preet Yu PA-C 05/23/2018 5:13 PM Signed Subjective HPI Patient presents with a sore throat, ear pressure, cough over the past 4 days. No fever. No vomiting or diarrhea. Denies chest pain or shortness of breath. She is not a smoker. No history of asthma. She denies any sick contacts that she knows of. Review of Systems Constitutional: Negative. HENT: Positive for congestion, ear pain and sore throat. Negative for sinus pain. Eyes: Negative. Respiratory: Positive for cough. Negative for hemoptysis, sputum production, shortness of breath and wheezing. Cardiovascular: Negative. Negative for chest pain. Gastrointestinal: Negative. Genitourinary: Negative. Skin: Negative. All other systems reviewed and are negative. No past medical history on file. Current Outpatient Prescriptions: Fpaxizcjyeoztki-Nhouxgeif-VW (BROMFED DM) 2-30-10 mg/5 mL syrup Take 10 mL by mouth four times daily as needed. Disp: 200 mL Rfl: 0 No current facility-administered medications for this visit. No past surgical history on file. No family history on file. Social History Substance Use Topics - Smoking status: Former Smoker - Smokeless tobacco: Never Used - Alcohol use Not on file BP 126/74 Pulse 74 Temp 36.4 ?C (97.6 ?F) (Tympanic) Resp 16 Wt 92.5 kg (204 lb) SpO2 97% Objective Physical Exam Constitutional: She is oriented to person, place, and time and well-developed, well-nourished, and in no distress. HENT: Head: Normocephalic and atraumatic. Right Ear: Tympanic membrane, external ear and ear canal normal. Left Ear: Tympanic membrane, external ear and ear canal normal. Nose: Mucosal edema and rhinorrhea present. Mouth/Throat: Uvula is midline, oropharynx is clear and moist and mucous membranes are normal. Neck: Normal range of motion. Neck supple. Cardiovascular: Normal rate, regular rhythm and normal heart sounds. Pulmonary/Chest: Effort normal and breath sounds normal. Neurological: She is alert and oriented to person, place, and time. Skin: Skin is warm and dry. Psychiatric: Affect and judgment normal. Nursing note and vitals reviewed. ASSESSMENT/PLAN: 1. Viral URI with cough - ICD9: 465.9, ICD10: J06.9, B97.89 (primary diagnosis) - Discussed viral etiology and rationale for treatment. - Rapid strep negative in office today - Symptomatic treatment with prn analgesia - Supportive care with fluids and rest - Follow up in one week if symptoms persist or sooner if worsening of symptoms - Bromfed for symtpoms. 2. Sore throat - ICD9: 462, ICD10: J02.9 - GROUP A STREPTOCOCCUS BY PCR - RAPID STREP TEST B/O Preet Yu PA-C Referring Provider: SELF [200] Allergies As of Date: 05/23/2018 (No Known Allergies) Date Reviewed: 05/23/2018 Reviewed by: Jeb Murphy Ma - Fully Assessed Reason for Visit: Sore Throat [200] Cmt: pressure in ears, head and bodyaches x 4 days Primary Visit Diagnosis:Viral URI with cough [J06.9, B97.89] Other Visit Diagnosis:Sore throat [J02.9] Order(s):GROUP A STREPTOCOCCUS BY PCR [SQGASPCR] Order #: [id number] RAPID STREP TEST B/O [[id number]] Order #: [id number] Ygkoijaterywhvw-Pcrmddwtk-LV (BROMFED DM) 2-30-10 mg/5 mL syrupTake 10 mL by mouth four times daily as needed.Disp: 200 mLRfl: 0 Prescriptions as of 05/23/2018 Sig: BROMPHENIRAMINE-PSEUDOEPHEDRI* Take 10 mL by mouth four time* Problem List As Of Date: 05/23/2018 (None) Prescriptions ordered this encounter Disp Refills Start End [id number]-HCXRPQKELTYFJDQ-PI 2* 200 * 0 05/23/2018 Route: ORAL Sig: Take 10 mL by mouth four times daily as needed. Encounter Status:Closed by PREET YU PA-C on 05/23/18 GROUP A STREP BY Collected: 09/13/2017 Status: F Source: [facility] 11:31 PM [facility] REPOSITORY TYPE CODE TESTS RESULT OUT OF REFERENCE UNITS RANGE LAB [facility] Throat Swab GAS Specimen Source LAB PCRGAS Negative for Group A Strep Group A PCR Streptococcus by PCR. Result Comment: This test was developed and its performance characteristics determined by [facility] Reji Piña [facility] [place] ([facility]). It has not been cleared or approved by the FDA. [facility] is regulated under CLIA as qualified to perform high-complexity testing. This test is used for clinical purposes. It should not be regarded as inv estigational or for research. Performed By: #### GASPCR #### [facility] [address] [id number] PROGRESS Observed: 09/13/2017 Status: COMPLETED Source: [place] 9:48 AM [facility] REPOSITORY HNO ID: [id number] Author: Lalitha (Operating Table Assembler) [facility] Service: (none) Author Type: Nurse Practitioner Type: Progress Notes Filed: 09/13/2017 10:15 AM Note Text: Subjective HPI Annel Martin is a 26 year old female who presents with cough, chest congestion, fever, dizziness, for the past 2 days, and vomiting a few times yesterday. She thinks the vomiting may have been from drinking Emergen-C. She also took Tylenol for the fever. No known sick. Review of Systems Constitutional: Positive for fever (102 yesterday). Negative for malaise/fatigue. HENT: Positive for ear pain (bilateral) and sore throat. Negative for congestion. Respiratory: Positive for cough and sputum production. Negative for shortness of breath. Cardiovascular: Positive for chest pain (sore ribs from coughing). Gastrointestinal: Positive for nausea and vomiting (yesterday, now resolved). Negative for abdominal pain and diarrhea. Neurological: Positive for dizziness and headaches. BP 120/68 Pulse 87 Temp 36.4 ?C (97.6 ?F) (Left Tympanic) Resp 20 Wt 97.5 kg (215 lb) SpO2 98% No past medical history on file. No past surgical history on file. ALLERGIES Review of patient's allergies indicates no known allergies. MEDICATIONS No prescriptions on file. No family history on file. Social History Substance Use Topics - Smoking status: Former Smoker - Smokeless tobacco: Never Used - Alcohol use Not on file Objective Physical Exam Constitutional: She is well-developed, well-nourished, and in no distress. HENT: Head: Normocephalic. Right Ear: Tympanic membrane, external ear and ear canal normal. Left Ear: Tympanic membrane, external ear and ear canal normal. Nose: Nose normal. No rhinorrhea. Mouth/Throat: Uvula is midline and mucous membranes are normal. Mucous membranes are not pale and not dry. Posterior oropharyngeal edema and posterior oropharyngeal erythema present. No oropharyngeal exudate. Eyes: Conjunctivae are normal. Right eye exhibits no discharge. Left eye exhibits no discharge. Neck: Neck supple. Cardiovascular: Normal rate and regular rhythm. Pulmonary/Chest: Effort normal and breath sounds normal. Lymphadenopathy: She has no cervical adenopathy. Neurological: She is alert. Skin: Skin is warm and dry. No rash noted. No erythema. Nursing note and vitals reviewed. ASSESSMENT/PLAN: 1. Sore throat - ICD9: 462, ICD10: J02.9 (primary diagnosis) - suspect viral - Rapid Strep negative in the office today and Throat culture pending - Discussed supportive care treatment with fluids, rest and analgesia. - The patient may also use warm salt water gargles, throat lozenges and/or OTC throat spray as needed. - Contagious dz precautions discussed- including considered contagious until on antibiotics for 24 hours - Call back if drooling, increased temperature, symptoms of dehydration and/or still sick in one week - RAPID STREP TEST B/O - GROUP A STREPTOCOCCUS BY PCR 2. Viral URI with cough - ICD9: 465.9, ICD10: J06.9, B97.89 - Discussed viral etiology and rationale for treatment. - Rapid strep negative in office today - Symptomatic treatment with prn analgesia - Supportive care with fluids and rest - BENZONATATE 100 MG CAPSULE - Follow-up with your PCP in 3-5 days if symptoms have not improved or sooner if symptoms worsen - Discussed red flags and need for immediate medical evaluation if any occur. - Discussed supportive care treatment with fluids, rest and analgesia. - Discussed expected course of illness Lalitha Harmon APRN.CNP CNOV Observed: 09/13/2017 Status: COMPLETED Source: [place] 9:30 AM [facility] REPOSITORY Office Visit (UCWSTR) ANNEL MARTIN ([id number]) 1990 F Date Time Provider Department 09/13/17 9:30 AM LALITHA HARMON (GRACIELA) WSTR During your visit today, we recorded the following information about you: Temperature Pulse Respiration Blood pressure 97.6 degrees 87/minute 20/minute 120/68 Weight 97.5 kg Lalitha Harmon APRN.SYSTEM ADMIN 09/13/2017 10:15 AM Signed Subjective HPI Annel Martin is a 26 year old female who presents with cough, chest congestion, fever, dizziness, for the past 2 days, and vomiting a few times yesterday. She thinks the vomiting may have been from drinking Emergen-C. She also took Tylenol for the fever. No known sick. Review of Systems Constitutional: Positive for fever (102 yesterday). Negative for malaise/fatigue. HENT: Positive for ear pain (bilateral) and sore throat. Negative for congestion. Respiratory: Positive for cough and sputum production. Negative for shortness of breath. Cardiovascular: Positive for chest pain (sore ribs from coughing). Gastrointestinal: Positive for nausea and vomiting (yesterday, now resolved). Negative for abdominal pain and diarrhea. Neurological: Positive for dizziness and headaches. BP 120/68 Pulse 87 Temp 36.4 ?C (97.6 ?F) (Left Tympanic) Resp 20 Wt 97.5 kg (215 lb) SpO2 98% No past medical history on file. No past surgical history on file. ALLERGIES Review of patient's allergies indicates no known allergies. MEDICATIONS No prescriptions on file. No family history on file. Social History Substance Use Topics - Smoking status: Former Smoker - Smokeless tobacco: Never Used - Alcohol use Not on file Objective Physical Exam Constitutional: She is well-developed, well-nourished, and in no distress. HENT: Head: Normocephalic. Right Ear: Tympanic membrane, external ear and ear canal normal. Left Ear: Tympanic membrane, external ear and ear canal normal. Nose: Nose normal. No rhinorrhea. Mouth/Throat: Uvula is midline and mucous membranes are normal. Mucous membranes are not pale and not dry. Posterior oropharyngeal edema and posterior oropharyngeal erythema present. No oropharyngeal exudate. Eyes: Conjunctivae are normal. Right eye exhibits no discharge. Left eye exhibits no discharge. Neck: Neck supple. Cardiovascular: Normal rate and regular rhythm. Pulmonary/Chest: Effort normal and breath sounds normal. Lymphadenopathy: She has no cervical adenopathy. Neurological: She is alert. Skin: Skin is warm and dry. No rash noted. No erythema. Nursing note and vitals reviewed. ASSESSMENT/PLAN: 1. Sore throat - ICD9: 462, ICD10: J02.9 (primary diagnosis) - suspect viral - Rapid Strep negative in the office today and Throat culture pending - Discussed supportive care treatment with fluids, rest and analgesia. - The patient may also use warm salt water gargles, throat lozenges and/or OTC throat spray as needed. - Contagious dz precautions discussed- including considered contagious until on antibiotics for 24 hours - Call back if drooling, increased temperature, symptoms of dehydration and/or still sick in one week - RAPID STREP TEST B/O - GROUP A STREPTOCOCCUS BY PCR 2. Viral URI with cough - ICD9: 465.9, ICD10: J06.9, B97.89 - Discussed viral etiology and rationale for treatment. - Rapid strep negative in office today - Symptomatic treatment with prn analgesia - Supportive care with fluids and rest - BENZONATATE 100 MG CAPSULE - Follow-up with your PCP in 3-5 days if symptoms have not improved or sooner if symptoms worsen - Discussed red flags and need for immediate medical evaluation if any occur. - Discussed supportive care treatment with fluids, rest and analgesia. - Discussed expected course of illness MALINI Campbell APRN.CNP 09/13/2017 10:11 AM Signed Take medications as prescribed. If not improving in 3-5 days, or you have worsening symptoms, see your primary care provider for recheck. Treatment for Viral Upper Respiratory Tract Infections Your body will kill off the virus by itself. Additionally, you can prime your body's immune system. This may help you get better more quickly. 1. Drink lots of fluids - at least one gallon of non-caffeinated liquids per day 2. Make sure you are eating well 3. Get plenty of rest - at least 8 hours of sleep per night for adults and more for children We do not have any medications that kill off these viruses. Antibiotics are used to treat bacterial infections; however, they are not active against viral infections. There are some things that might help you feel better, though. 1. Vaporizers, humidifiers, hot showers, and hot fluids help open respiratory and sinus passages 2. Sudafed is a safe and effective decongestant 3. Montz Nasal [place] may offer relief of nasal and head congestion 4. Srinivas's Vapor Rub placed on a hot towel and draped over the head may relieve congestion 5. Tylenol and Advil help control fevers and headaches 6. Salt water gargles help relieve sore throats 7. Chloraceptic spray or throat lozenges may also help relieve sore throat symptoms 8. Mucinex will help loosen up secretions and also provide relief from a cough Occasionally, viral infections turn into something more serious. You should see your doctor or return to the Urgent Care if: 1. You have fevers for longer than five days 2. You have fevers above 102 degrees 3. You are still sick after 10 days 4. You have shortness of breath or wheezing 5. After several days you are getting worse rather than better Referring Provider: SELF [200] Allergies As of Date: 09/13/2017 (No Known Allergies) Date Reviewed: 09/13/2017 Reviewed by: Lalitha ([employer]) Dk - Fully Assessed Reason for Visit: Cough [28] Cmt: cough and chest congestion x 3 days Fever [47] Cmt: x 3 days Dizziness [36] Cmt: x 3 days Primary Visit Diagnosis:Sore throat [J02.9] Other Visit Diagnosis:Viral URI with cough [J06.9, B97.89] Order(s):RAPID STREP TEST B/O [[id number]] Order #: [id number] GROUP A STREPTOCOCCUS BY PCR [SQGASPCR] Order #: [id number] benzonatate (TESSALON PERLE) 100 mg capsuleTake 2 capsules by mouth three times daily as needed for up to 10 days.Disp: 30 capsuleRfl: 0 Prescriptions as of 09/13/2017 Sig: BENZONATATE 100 MG CAPSULE Take 2 capsules by mouth thre* Problem List As Of Date: 09/13/2017 (None) Other instructions from your clinician: Take medications as prescribed. If not improving in 3- 5 days, or you have worsening symptoms, see your primary care provider for recheck. Treatment for Viral Upper Respiratory Tract Infections Your body will kill off the virus by itself. Additionally, you can prime your body's immune system. This may help you get better more quickly. 1. Drink lots of fluids - at least one gallon of non-caffeinated liquids per day 2. Make sure you are eating well 3. Get plenty of rest - at least 8 hours of sleep per night for adults and more for children We do not have any medications that kill off these viruses. Antibiotics are used to treat bacterial infections; however, they are not active against viral infections. There are some things that might help you feel better, though. 1. Vaporizers, humidifiers, hot showers, and hot fluids help open respiratory and sinus passages 2. Sudafed is a safe and effective decongestant 3. Montz Nasal [place] may offer relief of nasal and head congestion 4. Srinivas's Vapor Rub placed on a hot towel and draped over the head may relieve congestion 5. Tylenol and Advil help control fevers and headaches 6. Salt water gargles help relieve sore throats 7. Chloraceptic spray or throat lozenges may also help relieve sore throat symptoms 8. Mucinex will help loosen up secretions and also provide relief from a cough Occasionally, viral infections turn into something more serious. You should see your doctor or return to the Urgent Care if: 1. You have fevers for longer than five days 2. You have fevers above 102 degrees 3. You are still sick after 10 days 4. You have shortness of breath or wheezing 5. After several days you are getting worse rather than better Prescriptions ordered this encounter Disp Refills Start End BENZONATATE 100 MG CAPSULE 30 c* 0 09/13/2017 09/23/2017 Route: ORAL Sig: Take 2 capsules by mouth three times daily as needed for up to 10 days. Letter Text Lalitha Harmon APRN.[facility] Urgent Care [address] [facility] [address] Dept: [phone] 09/13/2017 Annel Martin [address] [facility] [address] To Whom it May Concern: This is to certify that Annel Martin was seen at our office for medical care. Annel may return to work on 09/16/2017. If you have any questions please feel free to call. Sincerely: Lalitha Harmon APRN.[facility] Encounter Status:Closed by LALITHA HARMON on 09/13/17 ALLERGIES ALLERGIES DATE TYPE / CODE NAME / CODE REACTION SEVERITY SOURCE 06/30/2018 Drug mushroom/[id number] Anaphylaxis Unknown Rell Allergy/416 188(RXNORM) [facility] 001950([facility] ED CT) Repository Drug NO KNOWN [facility] Class/01325 ALLERGIES [address] [place] 1003(SNOMED Repository CT) ENCOUNTERS ENCOUNTERS ADMIT/DISCHARGE ACCOUNT ADMITTING ENCOUNTER LOCATION SOURCE NUMBER CLASS 06/30/2018/06/30/19 [id number] Emergency Rell Zacarias [facility] ing:ED Repository 06/29/2018/06/30/19 [id number] Ambulatory [address] Repository 06/28/2018/06/29/19 [id number] Ambulatory [address] Repository 05/23/2018/05/24/20 [id number] Ambulatory [address] Repository 09/13/2017/09/15/19 [id number] Ambulatory [address] Repository PAYERS PAYERS ENCOUNTER GUARANTOR PAYER SUBSCRIBER SOURCE 06/30/2018 TAMRA Zacarias [id number] Insurance:[facility] JARETHB: [facility] [place]: [id number] [address]: [id number] Repository Date:[id number] [address], [place] [address]AY: 06/30/2018 Secondary NOT GIVENKEVIN Zacarias Insurance:SELF PAY [facility] Number: Effective Repository Date:2018-06-30
== END 2018-06-30 10:26 | disposition home or self-care (01) ==
PROVIDERS: Emergency Provider Emergency Medicine; Family Provider Family Medicine; PCP Family Medicine
DX: N13.2 Hydronephrosis with renal and ureteral calculous obstruction (principal); N39.0 Urinary tract infection, site not specified
CPT/HCPCS: 74176; 80048; 81001; 84703; 85025; 87086; 87088; 96365; 96375; 99283; J7030; A4216; J2405

== ENCOUNTER → 2018-07-25 09:31 | Outpatient (CLI) | payer BC, SELFPAY ==
[2018-06-30 07:55] VITALS: BMI 34.3
--- NOTE | 2018-07-25 09:37 | RAD_ITS ---
STUDY: X-RAY - ABDOMEN/PELVIS REASON FOR EXAM: Female, 27 years old. Check for kidney stone movements TECHNIQUE: 2 views COMPARISON: A CT study of June 30, 2018 FINDINGS: There is a 4.1 mm calculus in the left inferior pole calyx. A 3.5 mm calculus is also seen in the distal right ureter. Both of these calculi have not changed to the respective positions since the CT study of June 30, 2018 RAD/Abdomen Single View IMPRESSION: A left inferior pole calyceal calculus and a calculus in the distal right ureter. Though these have not changed respective positions since the last CT study of June 30, 2018 Electronically Signed: Vance Clark MD at 2:26 EST Tel , Service support ,
== END ==
PROVIDERS: Family Provider Family Medicine; PCP Family Medicine; Referring Provider Urology; Visit Provider Urology
DX: N20.2 Calculus of kidney with calculus of ureter (principal)
CPT/HCPCS: 74018; 87086; 87088; 87186

== ENCOUNTER 2018-08-04 11:58 | Day surgery (SDC) | payer BC, SELFPAY ==
--- NOTE | 2018-08-03 12:55 | PCM.HP.BLA ---
History and Physical Date of Admission: 08/04/18 Patient returns, 27-year-old female who was found to have a stone about 5 mm the distal right ureter. Minimal pain or discomfort. She does feel like she may have a bladder infection. The urine's clear just with blood will send it for culture. KUB was done the day and the stone is still visible on x-ray. She is failed to pass a stone conservative measures at this point and recommended we proceed with surgery. ALLERGIES: Fungus MEDICATIONS: Flomax 0.4 mg capsule PSH: None PSH Notes: wisdom teeth extraction NON- PSH: None PMH: Calculus of kidney, Left - 07/06/2018 Calculus of ureter, Right - 07/06/2018 Frequency of micturition Hesitancy of micturition Personal history of urinary (tract) infections Personal history of urinary calculi Retention of urine, unspecified NON- PMH: Essential (primary) hypertension Mild intermittent asthma, uncomplicated Immunizations: None FAMILY HISTORY: None SOCIAL HISTORY: Marital Status: Preferred Language: Mongolian; Ethnicity: Not Or ; Race: White Current Smoking Status: Patient does not smoke anymore. Tobacco Use Assessment Completed: Used Tobacco in last 30 days? Smoking cessation counseling was provided. Does not use smokeless tobacco. Has never drank. Has not had a blood transfusion. REVIEW OF SYSTEMS: Constitutional: Patient denies fever, chills, weight loss, and weight gain. Genitourinary: Patient reports painful urination, blood in the urine, and history of stones. Patient denies frequent urination, urinary retention, get up at night to void, leakage of urine, frequent uti's, difficulty starting stream, weak stream/scanty, and bedwetting. Musculoskeletal: Patient reports sore muscles and back pain. Patient denies gout. Notes: Updated from previous visit 07/06/2018 with review from patient as noted above. VITAL SIGNS: 07/25/2018 09:57 AM Weight 200 lb / 90.72 kg Height 66 in / 167.64 cm BP 118/80 mmHg BMI 32.3 kg/m? - BMI Counseling was provided. MULTI-SYSTEM PHYSICAL EXAMINATION: Constitutional: Well-nourished. No physical deformities. Normally developed. Good grooming. Neck: Neck symmetrical, not swollen. Normal tracheal position. Respiratory: No labored breathing, no use of accessory muscles. Cardiovascular: Normal temperature, normal extremity pulses, no swelling, no varicosities. Lymphatic: No enlargement of neck, axillae, groin. Skin: No paleness, no jaundice, no cyanosis. No lesion, no ulcer, no rash. Neurologic / Psychiatric: Oriented to time, oriented to place, oriented to person. No depression, no anxiety, no agitation. Gastrointestinal: No mass, no tenderness, no rigidity, non obese abdomen. Eyes: Normal conjunctivae. Normal eyelids. Ears, Nose, Mouth, and Throat: Left ear no scars, no lesions, no masses. Right ear no scars, no lesions, no masses. Nose no scars, no lesions, no masses. Normal hearing. Normal lips. Musculoskeletal: Normal gait and station of head and neck. PAST DATA REVIEWED: Source Of History: Patient Records Review: Previous Patient Records Urine Test Review: Urinalysis X-Ray Review: KUB: Reviewed Report. C.T. Abdomen/Pelvis: Reviewed Report. PROCEDURES: Urinalysis - 43170 Dipstick Dipstick Cont'd Specimen: Voided Blood: about 250 Appearance: Clear pH: 5.0 Color: Yellow Protein: Neg Glucose: 100 Urobilinogen: Neg Bilirubin: Neg Nitrites: Neg Ketones: Neg Leukocyte Esterase: 2+ ASSESSMENT: ICD-10 Details 1 : Calculus of ureter - N20.1 Right 2 Gross hematuria - R31.0 PLAN: Orders Labs Urine Culture and Sensitivity Schedule Procedure: Unspecified Date - Cysto Uretero Lithotripsy - 63696, right Document Letter(s): Created for Patient: Clinical Summary Notes: 27-year-old female with a 5 mm stone in the distal right ureter has failed conservative measures to pass a stone plan to proceed with right ureteroscopy, balloon dilation of the ureter, laser lithotripsy, removal fragments and possible stent placement on the right she elected to have this done in about a week for now.
[2018-08-04] MEDS: Cefazolin 2 GM in 0.9% Normal Saline 100 ML IV (07:00)
[2018-08-04 12:24] LABS: Internal QC Validated? YES +Cl - CLEAR BKGD; Pregnancy, Urine Negative Negative
[2018-08-04 12:31] VITALS: BP 118/72; PULSE 85; RESP 16; TEMP 36.7; O2SAT 100; BMI 33.7
--- NOTE | 2018-08-04 12:55 | RAD_ITS ---
STUDY: X-RAY - ABDOMEN/PELVIS REASON FOR EXAM: Female, 27 years old. Preoperative evaluation for kidney stones. TECHNIQUE: Single AP view of the abdomen / pelvis. COMPARISON: Comparison is made with prior study dated July 25, 2018. FINDINGS: There is an abundance of fecal material throughout the colon. Faint 3 mm calcification is seen in the right hemipelvis. This is unchanged. Tiny calculus in the lower pole cortex of the left kidney. Normal soft tissue structures. Normal visualized osseous structures. RAD/Abdomen Single View IMPRESSION: There has been no change since prior study. Faint calcification in the right hemipelvis as well as a tiny calculus in the lower pole. The left kidney. Electronically Signed: Herbert Musa MD at 13:39 EST , Service support ,
--- NOTE | 2018-08-04 14:47 | DCINST_ITS ---
Discharge Diet: Light diet - advance as tolerated Discharge Activity: Return to Normal Activity Call your doctor if you observe: Fever of 101 or Higher, Uncontrolled pain Suture Line Care: Avoid Pulling/Pushing, Avoid Pinching/Bending Instructions: Treating Kidney Stones: Ureteroscopic Stone Removal Allergies/Adverse Reactions: Allergies mushroom Allergy (Verified 08/04/18 12:27) Anaphylaxis Medications to take at Discharge Ciprofloxacin [Cipro] 500 mg PO BID 07/28/18 Acetaminophen [Tylenol Extra Strength] 500 mg PO Q4H PRN PRN 7 Days #20 tablet 08/04/18 Ibuprofen 600 mg PO Q6H PRN PRN #20 tablet 08/04/18 The following prescriptions were given: Acetaminophen [Tylenol Extra Strength] 500 mg PO Q4H PRN PRN 7 Days #20 tablet PRN Reason: Pain Ibuprofen 600 mg PO Q6H PRN PRN #20 tablet PRN Reason: Pain Primary Care Physician: Care Physician,No Primary [Primary Care Provider] - Test Results: Test results from this visit will be discussed in further detail at your follow- up appointment, if applicable. Please Follow Up With: Ariel Rdz MD When: please call to make an appointment.
--- NOTE | 2018-08-04 15:06 | OP.PCM_ITS ---
Report of Operation Date of Procedure: 08/04/18 Pre-Operative Diagnosis: Right ureteral calculi causing obstruction Post-Operative Diagnosis: Same Surgery/Procedure Performed:: Cystoscopy, dilation of the right ureter, right ureteroscopy laser lithotripsy of stone, no stent Description of Surgical Findings:: 27-year-old female who is failed to pass the stone spontaneously she has a large stone in the distal right ureter we will proceed with ureteroscopy and laser lithotripsy today. 27-year-old female taken back to the operating room after smooth induction of general anesthesia she was placed in dorsal lithotomy position went of the joseph chapman with a 21 [place]an rigid cystourethroscope immediately saw the inflamed the ureter on the right side put a wire up and then could see the stone fragment then used a balloon dilator 12 Singaporean by 10 cm balloon dilator and balloon dilated the distal ureter without dilating the stone, and then went in left the wire and placement and next the wire with a offset 7.8 [place]an SlimLine semirigid ureteroscope was able to get into the ureter quite easily I then lasered the stone little tiny piece of the stones and passed into the bladder I then looked up into the ureter there is no other stone fragments in the ureter everything up past. Drain the bladder and the patient anesthetic was reversed and taken back to PACU good condition. Type of Anesthesia:: General Drains: none - Admit VTE Documentation VTE Present on Admission: No VTE Mechan Device Prophylaxis: SCD's
[2018-08-04 15:13] VITALS: BP 117/85; BP 118/72; PULSE 100; RESP 16; TEMP 36.2; O2SAT 98
[2018-08-04 15:15] VITALS: BP 115/84; BP 118/72; PULSE 84; RESP 16; O2SAT 98
[2018-08-04 15:30] VITALS: BP 116/72; BP 118/72; PULSE 92; RESP 16; O2SAT 100
[2018-08-04] MEDS: Ketorolac 15 MG/ML Vial IV (15:37)
[2018-08-04 15:39] VITALS: BP 118/72; BP 119/78; PULSE 88; RESP 16; TEMP 36.3; O2SAT 100
[2018-08-04 16:31] VITALS: BP 118/72; BP 139/82; PULSE 77; RESP 16; TEMP 36.3; O2SAT 100
== END 2018-08-04 16:40 | disposition home or self-care (01) ==
LOC: SDC 11:59 → AC 12:00
PROVIDERS: Anesthesiology; Referring Provider Urology; Visit Provider Urology
PROC: 0TJ98ZZ Inspection of Ureter, Via Natural or Artificial Opening Endoscopic (ICD-10-PCS; CPT 52352; principal; 2018-08-04 14:00)
DX: N20.1 Calculus of ureter (principal); Z87.442 Personal history of urinary calculi; I10 Essential (primary) hypertension; J45.20 Mild intermittent asthma, uncomplicated; Z87.891 Personal history of nicotine dependence
CPT/HCPCS: 52353; 74018; 81025; J7120; C1769; J2405

== ENCOUNTER 2020-06-03 22:00 | Emergency (ER) | payer BC, SELFPAY ==
[2019-04-04 08:04] VITALS: BMI 33.7
[2020-06-03 22:01] VITALS: BP 151/97; PULSE 89; RESP 15; TEMP 36.6; O2SAT 99; BMI 37.0
--- NOTE | 2020-06-03 22:19 | ED.DCSUM_ITS ---
History of Present Illness Chief Complaint: Dental Narrative: Patient is a 29-year-old female who presents with 1 month of dental pain. She complains of right lower dental pain for about 1 month. [facility] She was prescribed amoxicillin but did not take this as prescribed. She quit taking it once her symptoms improved but that when her pain worsened again she restarted it. She was advised that it would not be as efficacious of not taken as prescribed. She was able to get a dentist appointment scheduled for tomorrow but states she could not take the pain anymore tonight. She has been taking anti-inflammatories at home without adequate relief. No fevers. Not diabetic. No speech difficulty. No vomiting. 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/03/20 22:00) Anaphylaxis Primary Care Physician: Magalie Mcnamara MD [Primary Care Provider] - Past Medical History: None Smoking Status: Current some day smoker Review of Systems All systems negative except as indicated General: Denies: Fever ENT: Reports: - - Dental pain Gastrointestinal: Denies: Nausea, Vomiting, Diarrhea Skin: Denies: Rash Physical Exam Vital Signs/Narrative: Vital Signs Temp Pulse Resp BP Pulse Ox 06/03/20 22:01 97.9 F 89 15 151/97 H 99 Inital Vital Signs reviewed: Yes General: Well nourished Head: Normocephalic Eyes: EOMI ENT: - - Patient has focal dental decay of the right mandibular second molar she does not have a focal dental abscess amenable to incision and drainage she has no trismus she has clear speech she does not have sublingual edema Cardiovascular: Regular rate Respiratory: No distress Skin: Normal color Neurological: Alert Psychological: Normal affect Diagnostic/Tx/Re-eval - Medical Decision Making Patient was prescribed clindamycin. She was given a Ganado here and a prescription for 1 days worth until she can see dentistry tomorrow. Patient discharged. She was advised to keep her scheduled appointment and take all medications as prescribed. ED Disposition - Plan for ED Patient: Disposition: Home or Assisted Living Diagnosis: Pain, dental Instructions: ED Dental Pain Prescriptions: Hydrocodone Bitart/Apap 5-325 [Ganado 5MG-325MG] 1 tab PO Q6H PRN 1 Days #4 tab PRN Reason: Pain Prescription Printed Referrals: Magalie Mcnamara MD [Primary Care Provider] -
[2020-06-03] MEDS: Clindamycin HCl 150 MG Capsule 300 MG PO (22:41)
[2020-06-03] MEDS: HYDROcodone Bitartrate/Apap 5/325 Tablet PO (22:41)
== END 2020-06-03 22:44 | disposition home or self-care (01) ==
LOC: ED 22:27
PROVIDERS: Emergency Provider Emergency Medicine; PCP Internal Medicine
DX: K08.89 Other specified disorders of teeth and supporting structures (principal); F17.200 Nicotine dependence, unspecified, uncomplicated
CPT/HCPCS: 99283

== ENCOUNTER 2020-09-17 12:42 | Outpatient (RCR) | payer BC, SELFPAY | END 2020-11-18 23:59 | LOC: IMMUN 12:42 | PROVIDERS: PCP Internal Medicine; Visit Provider Family Medicine | DX: Z23 Encounter for immunization (principal) | CPT/HCPCS: 0001A; 0002A; 91300 ==

== ENCOUNTER 2020-11-23 20:53 | Emergency (ER) | payer BC, SELFPAY ==
[2020-11-23 20:54] VITALS: BP 140/80; PULSE 86; RESP 18; TEMP 36.6; O2SAT 97; BMI 37.3
--- NOTE | 2020-11-23 21:10 | RAD_ITS ---
STUDY: X-RAY CHEST REASON FOR EXAM: Female, 29 years old. SOB TECHNIQUE: Frontal and lateral views COMPARISON: None. FINDINGS: The lungs are clear and expanded. There is no demonstrated pleural abnormality. Normal size heart. Normal mediastinum and meena. Normal visualized pulmonary arteries. Normal visualized aortic arch and descending thoracic aorta. Normal visualized thoracic spine. Normal visualized ribs, clavicles, and shoulders. There is no demonstrated abnormality of the visualized soft tissue structures of the upper abdomen. RAD/Chest PA and Lateral IMPRESSION: Normal x-ray examination of the chest. Electronically Signed: Won Roblero DO at 21:43 EDT Tel [phone], Service support ,
--- NOTE | 2020-11-23 22:06 | EDS_ITS ---
HPI History of Present Illness Chief Complaint: Asthma Narrative Narrative: Patient presenting for evaluation secondary to shortness of breath. Patient has an underlying history of asthma. Patient states over the course the last couple of days, specifically when she is inside near her window air conditioner she starts to feel wheezy and short of breath. Its been causing her some difficulty with sleeping. She denies any chest pain. She denies any cough. She denies any fevers nausea vomiting diarrhea or any other associated symptoms. Patient states that her asthma is typically very well controlled, she has a rescue inhaler that she thinks is actually . She denies any sick contacts. Review of systems otherwise negative. [facility] Medical History Asthma Home Medications albuterol sulfate [ProAir HFA] 1 inh INHALATION Q6H PRN #6.7 g 11/23/20 [Rx Last Taken Unknown] prednisone 50 mg PO DAILY #5 tab 11/23/20 [Rx Last Taken Unknown] Allergy/AdvReac Type Severity Reaction Status Date / Time mushroom Allergy Anaphylaxis Verified 11/23/20 20:56 Social History Smoking Status: Current some day smoker tobacco type: cigarettes ROS ROS ED Constitutional Constitutional ED: Denies chills or fever(s) ENT ENT ED: Denies rhinorrhea Cardiovascular Cardiovascular: Denies chest pain Respiratory/Chest Respiratory/Chest: Reports dyspnea Gastrointestinal Gastrointestinal: Denies abdominal pain, diarrhea, nausea or vomiting Genitourinary Genitourinary ED: Denies dysuria or hematuria Musculoskeletal Musculoskeletal: Denies back pain Integumentary Denies rash Neurologic Neurologic: Denies paresthesias or weakness Psychiatric Psychiatric: Denies depression Endocrine Endocrinology: Denies fatigue Allergic/Immunologic Allergic/Immunologic ED: Denies urticaria EXAM Physical Exam Const Vital Signs: 11/23/20 20:54 Temperature 97.8 F Temperature Source Temporal Pulse Rate 86 Respiratory Rate 18 Blood Pressure 140/80 H Blood Pressure Mean 100 Pulse Ox 97 Oxygen Delivery Method Room Air Positive well nourished and well developed General Appearance ED: well developed and NAD HEENT Reports moist mucous membranes Negative for trauma or tenderness Eyes EOMs intact bilaterally Neck no lymphadenopathy, supple and no JVD Chest Wall inspection of chest normal Resp normal respiratory effort Auscultation: wheezes Cardio regular rate, regular rhythm, no murmurs and peripheral pulses 2+ throughout GI normal to inspection, nondistended, normoactive bowel sounds, non-tender and no masses Palpation: soft Back/Spine normal to inspection Extremity normal to inspection General Extremety ED: Negative for tenderness Neuro oriented x3 and no sensory deficits noted Sensorium / Orientation: alert Motor Exam: strength 5/5 throughout Psych mental status grossly normal Skin no rashes or lesions noted MDM MDM MDM Narrative Medical decision making narrative: Patient presented secondary to shortness of breath. PA and lateral chest x-ray by my personal review as well as radiology is found to be negative. Patient does have some wheezing, she likely has an element of an asthma exacerbation she will be given prednisone and will be discharged with a course of prednisone and inhaler. Radiography Chest X-Ray - ED: 2 View, Read by ED Physician and Normal Diagnostic Testing: Radiology Impression Chest X-Ray 11/23/20 21:10 IMPRESSION: Normal x-ray examination of the chest. Electronically Signed: Won Roblero DO at 21:43 EDT Tel [phone], Service support , Discharge Plan Triage Chief Complaint: Asthma ED Provider: Ej Min Dx/Rx/DC Orders Clinical Impression: Asthma exacerbation Instructions: ED Asthma, Acute (Adult) Prescriptions: New prednisone 50 mg tablet 50 mg PO DAILY Qty: 5 RF: 0 albuterol sulfate [ProAir HFA] 90 mcg/actuation HFA aerosol inhaler 1 inh inhalation Q6H PRN (Reason: shortness of breath or wheezing) Qty: 6.7 RF: 0 Primary Care Provider: Magalie Mcnamara Referrals: Magalie Mcnamara MD [Primary Care Provider] - 3-5 Days Disposition Disposition: Home, self care
[2020-11-23] MEDS: predniSONE 20 MG Tablet 40 MG PO (22:10)
[2020-11-23 22:13] VITALS: BP 136/60; PULSE 87; RESP 16; O2SAT 96
== END 2020-11-23 22:14 | disposition home or self-care (01) ==
PROVIDERS: Emergency Provider Emergency Medicine; PCP Internal Medicine
DX: J45.901 Unspecified asthma with (acute) exacerbation (principal); Z79.52 Long term (current) use of systemic steroids; Z79.899 Other long term (current) drug therapy; F17.210 Nicotine dependence, cigarettes, uncomplicated
CPT/HCPCS: 71046; 99283